=== PATIENT | male | born 1995 | race Caucasian/White ===

== ENCOUNTER 2020-10-18 22:49 | Emergency (ER) | payer OTHER ==
[~2020-10-18] VITALS: Ht 185.4 cm; Wt 77.1 kg
[2020-10-19] MEDS ORDERED: IBUPROFEN 800800 MG PO (01:33)
[2020-10-19 01:39] VITALS: BP 110/76
== END 2020-10-19 01:39 | disposition home or self-care (01) ==
LOC: ER 22:49
DX: S93.402A Sprain of unspecified ligament of left ankle, initial encounter (principal); W17.89XA Other fall from one level to another, initial encounter; Y93.89 Activity, other specified; Y92.89 Other specified places as the place of occurrence of the external cause; Y99.8 Other external cause status